=== PATIENT | female | born 1980 ===

== ENCOUNTER 2016-04-30 14:18 | Emergency (ER) | payer OTHER ==
--- NOTE | 2016-04-30 15:42 | ED NURSING NOTES ---
Clinical Report - Nurses [facility] [address] [place] [address] 04/30/2016 14:21 Patient: ASHIA BRAN TRIAGE Triage time 1425. Acuity: LEVEL 3. Chief Complaint: ABDOMINAL PAIN. ИРИНА COMA SCORE: Norden Coma Scale: 15- eyes open spontaneously (4); best verbal response- oriented x 4 (5); best motor response- obeys commands (6). --14:36 Carola Ojeda R.N. 14:28 04/30/16. BP: 108/55. HR: 89. RR: 18 (unlabored). O2 saturation: 99% on room air. Temp: 98.3 F (oral). Pain level now: 09/21. --14:36 Carola Ojeda R.N. Weight: 79.8 kg stated. Height/Length: 65 inches Per Patient. BMI: 29.3. --14:28 Carola Ojeda R.N. Medications Vitamins Oral. --14:32 Carola Ojeda R.N. Radha Oral. --14:32 Carola Ojeda R.N. Allergies Excedrin. --14:32 Carola Ojeda R.N. Medication/allergy information source: the patient. --14:36 Carola Ojeda R.N. History Arrived by private vehicle. Historian: patient. Accompanied by family. Primary physician ([facility]). ( pt c/o RLQ x 2 days. pt is 15 weeks , thinks she pulled a muscle while carrying her 16 month old daughter). Onset. (2 days ago). 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 PAST MEDICAL HX: Last normal menstrual period- Dec 28, 2015. 5. Para 3. Abortions 1. Currently : 15 weeks. SOCIAL HX: Never smoker. No alcohol use or drug use. ABUSE ASSESSMENT: No report of abuse. FALL RISK ASSESSMENT: Fall risk assessment completed. No fall risk identified. NUTRITIONAL RISK ASSESSMENT: The nutritional risk assessment revealed no deficiencies. FUNCTIONAL ASSESSMENT: Functional assessment: no impairments noted. LEARNING NEEDS ASSESSMENT: The learning needs assessment revealed no barriers. SKIN INTEGRITY ASSESSMENT: Skin integrity risk assessment completed. No skin integrity risk identified. --14:36 Carola Ojeda R.N. PROBLEMS: Pancreatitis. Lifestyle / Substance Problems. Gastritis. Pharyngitis. Asthma. Depression. Anxiety Reaction. GERD. Ulcerative Colitis. --14:47 Carola Ojeda R.N. ADDITIONAL SURGERIES: . --14:33 Carola Ojeda R.N. Interventions ID band on patient. To room. --14:36 Carola Ojeda R.N. PHYSICAL ASSESSMENT ( Pt reports minimal pain at this time.). GENERAL / NEURO / PSYCH: Alert. Appears in no acute distress. HEENT: Mucous membranes are pink. RESPIRATORY: Respirations not labored. GI / : Abdomen soft and nontender. No nausea noted. No emesis noted. SKIN: Skin is warm and dry. --15:01 Brennan Lambert R.N. NURSING PROGRESS NOTES Patient gowned. Head of bed elevated. Two patient identifiers checked. Call light placed in reach. Side rails up x 1. Bed placed in lowest position. Brakes of bed on. Patient ready for evaluation. --14:37 Carola Ojeda R.N. ( [facility]: 164). --14:45 Joanie Mora R.N. 15:02 04/30/2016 Site #1 started via IV in the right forearm with an 22g angiocath; one attempt. Blood drawn: rainbow set. Labeled in the presence of the patient and sent to the lab. Saline lock flushed with 10 mL saline. --15:03 Brennan Lambert R.N. Monitoring of patient in place. Patient gowned. Reassurance given. Two patient identifiers checked. Call light placed in reach. Bed placed in lowest position. --15:03 Brennan Lambert R.N. 15:51 04/30/2016 K-DUR (Potassium Chloride Michelle ER) PO Tablets 20 meq given. Allergies verified and confirmed 5 rights. --15:51 Brennan Lambert R.N. DISPOSITION / DISCHARGE Condition at departure: improved and stable. The goals identified in the patient's plan of care were met. --15:55 Brennan Lambert R.N. 15:54 04/30/16. BP: 108/64. HR: 96. RR: 16. O2 saturation: 99% on room air. Temp: 98.1 F. Pain level now: 0/10. --15:55 Brennan Lambert R.N. 16:07 04/30/2016 Site #1 removed upon discharge. Bandage applied. --16:12 Brennan Lambert R.N. Departure time: 16:13 Apr 30 2016. Condition at departure: improved and stable. The goals identified in the patient's plan of care were met. No learning barriers present. Discharge instructions provided and reviewed with the patient. Reviewed medication(s) side effects, precautions, dosing and course information. Prescription(s) given to the patient. Reviewed referral to a primary care physician. Patient verbalized understanding. Written instructions provided in French. The patient was discharged by the nurse practitioner. She was discharged home and accompanied by spouse. She left the Emergency Department ambulatory and via private vehicle. Patient driving. ( Pt stable, VSS, afebrile, ambulatory, S/O is ride home.). --16:13 Brennan Lambert R.N. Locked/Released at 04/30/2016 16:16 by Brennan Lambert R.N.
--- NOTE | 2016-04-30 15:42 | ED NURSING NOTES ---
Clinical Report - Nurses [facility] [address] [place] [address] 04/30/2016 14:21 Patient: ASHIA BRAN TRIAGE Triage time 1425. Acuity: LEVEL 3. Chief Complaint: ABDOMINAL PAIN. ИРИНА COMA SCORE: Dover Coma Scale: 15- eyes open spontaneously (4); best verbal response- oriented x 4 (5); best motor response- obeys commands (6). --14:36 Carola Ojeda R.N. 14:28 04/30/16. BP: 108/55. HR: 89. RR: 18 (unlabored). O2 saturation: 99% on room air. Temp: 98.3 F (oral). Pain level now: 09/21. --14:36 Carola Ojeda R.N. Weight: 79.8 kg stated. Height/Length: 65 inches Per Patient. BMI: 29.3. --14:28 Carola Ojeda R.N. Medications Vitamins Oral. --14:32 Carola Ojeda R.N. Radha Oral. --14:32 Carola Ojeda R.N. Allergies Excedrin. --14:32 Carola Ojeda R.N. Medication/allergy information source: the patient. --14:36 Carola Ojeda R.N. History Arrived by private vehicle. Historian: patient. Accompanied by family. Primary physician ([facility]). ( pt c/o RLQ x 2 days. pt is 15 weeks , thinks she pulled a muscle while carrying her 16 month old daughter). Onset. (2 days ago). 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 PAST MEDICAL HX: Last normal menstrual period- Dec 28, 2015. 5. Para 3. Abortions 1. Currently : 15 weeks. SOCIAL HX: Never smoker. No alcohol use or drug use. ABUSE ASSESSMENT: No report of abuse. FALL RISK ASSESSMENT: Fall risk assessment completed. No fall risk identified. NUTRITIONAL RISK ASSESSMENT: The nutritional risk assessment revealed no deficiencies. FUNCTIONAL ASSESSMENT: Functional assessment: no impairments noted. LEARNING NEEDS ASSESSMENT: The learning needs assessment revealed no barriers. SKIN INTEGRITY ASSESSMENT: Skin integrity risk assessment completed. No skin integrity risk identified. --14:36 Carola Ojeda R.N. PROBLEMS: Pancreatitis. Lifestyle / Substance Problems. Gastritis. Pharyngitis. Asthma. Depression. Anxiety Reaction. GERD. Ulcerative Colitis. --14:47 Carola Ojeda R.N. ADDITIONAL SURGERIES: . --14:33 Carola Ojeda R.N. Interventions ID band on patient. To room. --14:36 Carola Ojeda R.N. PHYSICAL ASSESSMENT ( Pt reports minimal pain at this time.). GENERAL / NEURO / PSYCH: Alert. Appears in no acute distress. HEENT: Mucous membranes are pink. RESPIRATORY: Respirations not labored. GI / : Abdomen soft and nontender. No nausea noted. No emesis noted. SKIN: Skin is warm and dry. --15:01 Brennan Lambert R.N. NURSING PROGRESS NOTES Patient gowned. Head of bed elevated. Two patient identifiers checked. Call light placed in reach. Side rails up x 1. Bed placed in lowest position. Brakes of bed on. Patient ready for evaluation. --14:37 Carola Ojeda R.N. ( [facility]: 164). --14:45 Joanie Mora R.N. 15:02 04/30/2016 Site #1 started via IV in the right forearm with an 22g angiocath; one attempt. Blood drawn: rainbow set. Labeled in the presence of the patient and sent to the lab. Saline lock flushed with 10 mL saline. --15:03 Brennan Lambert R.N. Monitoring of patient in place. Patient gowned. Reassurance given. Two patient identifiers checked. Call light placed in reach. Bed placed in lowest position. --15:03 Brennan Lambert R.N. 15:51 04/30/2016 K-DUR (Potassium Chloride Michelle ER) PO Tablets 20 meq given. Allergies verified and confirmed 5 rights. --15:51 Brennan Lambert R.N. DISPOSITION / DISCHARGE Condition at departure: improved and stable. The goals identified in the patient's plan of care were met. --15:55 Brennan Lambert R.N. 15:54 04/30/16. BP: 108/64. HR: 96. RR: 16. O2 saturation: 99% on room air. Temp: 98.1 F. Pain level now: 0/10. --15:55 Brennan Lambert R.N. 16:07 04/30/2016 Site #1 removed upon discharge. Bandage applied. --16:12 Brennan Lambert R.N. Departure time: 16:13 Apr 30 2016. Condition at departure: improved and stable. The goals identified in the patient's plan of care were met. No learning barriers present. Discharge instructions provided and reviewed with the patient. Reviewed medication(s) side effects, precautions, dosing and course information. Prescription(s) given to the patient. Reviewed referral to a primary care physician. Patient verbalized understanding. Written instructions provided in Swedish. The patient was discharged by the nurse practitioner. She was discharged home and accompanied by spouse. She left the Emergency Department ambulatory and via private vehicle. Patient driving. ( Pt stable, VSS, afebrile, ambulatory, S/O is ride home.). --16:13 Brennan Lambert R.N. Locked/Released at 04/30/2016 16:16 by Brennan Lambert R.N.
--- NOTE | 2016-04-30 15:42 | ED ORDER SUMMARY ---
..... Patient: ASHIA BRAN OrderSheet [facility] VisitID: [id number] [address] [place] [address] 35y, F Registration Date/Time: 04/30/2016 ORDER SHEET Weight: 79.8 kg (stated) Allergies: Excedrin GENERAL ORDERS: US Abdomen Complete (No) Urgent (14:49 04/30/2016 HBivens A.R.N.P.) (Ack 15:02 RKaruga) (16:03 MCook R.N.) CBC w Diff Urgent (14:49 04/30/2016 HBivens A.R.N.P.) (Ack 15:02 RKaruga) (15:02 MCook R.N.) CMP Urgent (14:49 04/30/2016 HBivens A.R.N.P.) (Ack 15:02 RKaruga) (15:02 MCook R.N.) UA-Culture if indicated Urgent (14:50 04/30/2016 HBivens A.R.N.P.) (Ack 15:02 RKaruga) (15:02 MCook R.N.) MEDICATION ORDERS: K-Dur PO 20 meq (Do not crush or chew, NOW) (15:30 04/30/2016 HBivens A.R.N.P.) (15:51 MCook R.N.) IV FLUIDS: IV Saline Lock (14:49 04/30/2016 HBivens A.R.N.P.) (Ack 14:51 SStone R.N.) (15:03 MCook R.N.) ORDER SHEET NOTES: [Electronically signed by Brennan Lambert R.N. (16:16 04/30/2016)] [Electronically signed by Manuela Islas.R.N.P. (16:18 04/30/2016)] [Electronically locked/signed by Brennan Lambert R.N. (16:16 04/30/2016)]
--- NOTE | 2016-04-30 15:42 | ED CLINICAL REPORT ---
Clinical Report - Physicians/Mid Levels [facility] [address] [place] [address] 04/30/2016 14:21 Patient: ASHIA BRAN Time Seen: 14:24; upon arrival, initial patient contact, initial documentation, patient care assumed. Arrived- By private vehicle. Historian- patient. HISTORY OF PRESENT ILLNESS Chief Complaint: ABDOMINAL PAIN. This started yesterday and is still present. It was abrupt in onset and has been constant. At its maximum, severity described as moderate. When seen in the E.D., severity described as moderate. Modifying factors. Not worsened by anything. Not relieved by anything. It is described as "pain", sharp and stabbing. No radiation. It is described as located in the right lower quadrant. No nausea, loss of appetite, vomiting or diarrhea. No additional abdominal pain. No recent travel. Similar symptoms previously: None. Recent medical care: The patient was seen recently in a clinic. 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 REVIEW OF SYSTEMS No constipation, black stools, hematemesis, difficulty with urination or pain with urination. No urinary frequency, bloody stools, fever, chest pain or difficulty breathing. Currently : In 2nd trimester. Has had care in clinic. All systems otherwise negative, except as recorded above. PAST HISTORY See nurses notes. PAST HISTORY Asthma. Depression. Anxiety Reaction. GERD. Ulcerative Colitis. ADDITIONAL SURGERIES: . --14:33 Carola Ojeda, RVerito. SOCIAL HISTORY Never smoker. No alcohol use or drug use. No recent travel. Is a local resident. She lives with spouse. FAMILY HISTORY Negative. ADDITIONAL NOTES The nursing notes have been reviewed with agreement regarding the chief complaint, HPI, ROS, PMH and patient medications and allergies. PHYSICAL EXAM Vital Signs: 04/30/2016 14:28 BP: 108/55. HR: 89. RR: 18. O2 saturation: 99%. Temp: 98.3 F. Pain level now: 7/10. Have been reviewed as normal and appear to be correct. Appearance: Alert. Oriented X3. No acute distress. Eyes: Pupils equal, round and reactive to light. Eyes normal inspection. Neck: Normal inspection. Neck supple. CVS: Normal heart rate and rhythm. Heart sounds normal. Pulses normal. Respiratory: No respiratory distress. Breath sounds normal. Chest nontender. Abdomen: Soft. Mild tenderness in the right lower quadrant. No guarding, rebound tenderness or Mooney's, obturator or psoas sign present. Nontender gravid uterus palpable to midpoint between pubic symphysis and umbilicus (FHT's 160's per nurse). Size consistent with dates. Normal heart tones. Bowel sounds normal. No organomegaly. No mass. Tenderness present. Back: Normal inspection. Skin: Skin warm and dry. Normal skin color. No rash. Normal skin turgor. Extremities: Extremities exhibit normal ROM. No lower extremity edema. Neuro: Oriented X 3. No motor deficit. No sensory deficit. LABS, X-RAYS, AND EKG Abdominal Sonogram: No acute disease. (verbal report given by [employer], [facility] appy, normal iup). Laboratory Tests: UA-Culture if indicated: (MIKEY: 04/30/2016 14:35) ( [facility] 04/30/2016 15:13) Final results Test Result Flag Units (Reference) URINE COLOR YELLOW URINE APPEARANCE CLEAR URINE GLUCOSE NEGATIVE (NEGATIVE) URINE BILIRUBIN NEGATIVE (NEGATIVE) URINE KETONE NEGATIVE (NEGATIVE) URINE SPECIFIC GRAVITY 1.010 (1.010-1.030) URINE PH 6.0 (5.0-8.0) URINE PROTEIN NEGATIVE (NEGATIVE) URINE UROBILINOGEN 0.2 EU/dL (0.2-1.0) URINE NITRITE NEGATIVE (NEGATIVE) URINE BLOOD NEGATIVE (NEGATIVE) URINE LEUK ESTERASE POSITIVE (NEGATIVE) URINE RBC NONE SEEN rbc/hpf (0-1) URINE WBC RARE wbc/hpf (0-1) URINE EPITHELIAL CELLS NONE SEEN EPI/hpf (0-5) URINE BACTERIA NONE SEEN (NONE SEEN) URINE COMMENT CULTURE INDICATED URINE CULTURES ARE SET-UP BASED ON THE FOLLOWING CRITERIA:POSITIVE NITRITEPOSITIVE LEUKOCYTE ESTERASEGREATER THAN 10 WHITE BLOOD CELLSMODERATE (2+) OR GREATER BACTERIA CBC w Diff: (MIKEY: 04/30/2016 15:00) ( [facility] 04/30/2016 15:12) Final results Test Result Flag Units (Reference) WHITE BLOOD COUNT 6.6 K/uL (4.5-11.5) RED BLOOD COUNT 3.92 L M/uL (4.00-5.20) HEMOGLOBIN 11.6 L gm/dL (12.0-16.0) HEMATOCRIT 34.1 L % (36.0-46.0) MEAN CELL VOLUME 87 fL (80-100) MEAN CORPUSCULAR HGB 30 pg (26-34) MEAN CORPUSCULAR HGB CONC 34 g/dL (31-37) RED CELL DISTRIBUTION WIDTH 14.1 % (11.6-14.8) PLATELET COUNT 323 K/uL (150-400) NEUTROPHIL % 67.7 % (50-75) LYMPH % 21.3 L % (25-40) MONO % 8.8 % (3-14) EOSINOPHIL % 1.8 % (0-4) BASOPHIL % 0.4 % (0-2) CMP: (MIKEY: 04/30/2016 15:00) ( MsgRcvd 04/30/2016 15:28) Final results Test Result Flag Units (Reference) GLUCOSE 107 mg/dL (70-110) BUN 6 L mg/dL (7-18) CREATININE 0.5 L mg/dL (0.6-1.3) Estimated GFR >60 mL/min Estimated GFR- >60 mL/min Note: Persistent reduction over 3 months in eGFR<60 mL/min/1.73 m2 defines CKD. Patients with eGFR values>=60 mL/min/1.73 m2 may also have CKD if evidence ofpersistent proteinuria. Additional information may be foundat www.kidney.org. SODIUM 138 mmol/L (136-145) POTASSIUM 3.2 L mmol/L (3.5-5.1) CHLORIDE 105 mmol/L (98-107) CARBON DIOXIDE 22 mmol/L (21-32) CALCIUM 8.5 mg/dL (8.5-10.1) TOTAL PROTEIN 7.1 g/dL (6.4-8.2) ALBUMIN 3.1 L g/dL (3.3-5.0) BILIRUBIN, TOTAL 0.2 mg/dL (0.0-1.0) ALKALINE PHOSPHATASE 41 L U/L (46-116) AST (SGOT) 11 L U/L (15-37) ALT (SGPT) 16 U/L (12-78) . PROGRESS AND PROCEDURES Patient counseled in person regarding the patient's stable condition, test results and diagnosis. 1535. Differential Diagnosis: I considered acute appendicitis, mesenteric lymphadenitis, hernia, urinary tract infection, ureterolithiasis, ovarian cyst, ovarian torsion, , pelvic abscess and viral syndrome as a possible cause of abdominal pain in this patient. This is a partial list of diagnoses considered. Above considerations are based on history, physical exam, laboratory data and other information. Differential diagnosis was discussed with patient. Disposition: Discharged home in good and unchanged condition (15:41). Condition: good and stable. CLINICAL IMPRESSION Acute right lower quadrant abdominal pain. Acute urinary tract infection. No cystitis, pyelonephritis or hematuria. Not associated with indwelling catheter or obstruction. INSTRUCTIONS Warnings: GENERAL WARNINGS: Return or contact your physician immediately if your condition worsens or changes unexpectedly, if not improving as expected, or if other problems arise. SPECIFICALLY, return if you develop pain in the abdomen or pelvis, fever, vomiting, the inability to keep fluids down, blood in vomitus, blood in diarrhea, fainting, lightheadedness or vaginal bleeding. Prescription Medications: Macrobid 100 mg: Take 1 capsule orally every 12 hours for 7 days. No refills. Substitution is permissible. Follow-up: Follow up with your doctor in about three days even if well. Call for an appointment. Summary of care provided to patient. Understanding of the discharge instructions verbalized by patient. (Electronically signed by Manuela Islas A.R.N.P. 04/30/2016 16:18)
--- NOTE | 2016-04-30 15:42 | ED ORDER SUMMARY ---
..... Patient: ASHIA BRAN OrderSheet [facility] VisitID: [id number] [address] [place] [address] 35y, F Registration Date/Time: 04/30/2016 ORDER SHEET Weight: 79.8 kg (stated) Allergies: Excedrin GENERAL ORDERS: US Abdomen Complete (No) Urgent (14:49 04/30/2016 HBivens A.R.N.P.) (Ack 15:02 RKaruga) (16:03 MCook R.N.) CBC w Diff Urgent (14:49 04/30/2016 HBivens A.R.N.P.) (Ack 15:02 RKaruga) (15:02 MCook R.N.) CMP Urgent (14:49 04/30/2016 HBivens A.R.N.P.) (Ack 15:02 RKaruga) (15:02 MCook R.N.) UA-Culture if indicated Urgent (14:50 04/30/2016 HBivens A.R.N.P.) (Ack 15:02 RKaruga) (15:02 MCook R.N.) MEDICATION ORDERS: K-Dur PO 20 meq (Do not crush or chew, NOW) (15:30 04/30/2016 HBivens A.R.N.P.) (15:51 MCook R.N.) IV FLUIDS: IV Saline Lock (14:49 04/30/2016 HBivens A.R.N.P.) (Ack 14:51 SStone R.N.) (15:03 MCook R.N.) ORDER SHEET NOTES: [Electronically signed by Brennan Lambert R.N. (16:16 04/30/2016)] [Electronically signed by Manuela Islas.R.N.P. (16:18 04/30/2016)] [Electronically locked/signed by Brennan Lambert R.N. (16:16 04/30/2016)]
--- NOTE | 2016-04-30 15:55 | DIAGNOSTIC IMAGING REPORT ---
PROCEDURE: US ABDOMEN ULTRASOUND-COMPLETE INDICATION: ABDOMINAL PAIN TECHNIQUE: Kirkpatrick scale and color Doppler sonographic images of the abdomen were obtained without comparison. COMPARISON: None. FINDINGS: Single live intrauterine fetus heart rate 156 The liver is normal in size, contour, and echotexture. No mass or intrahepatic biliary dilatation. The gallbladder is normal without stones or sludge. The wall is normal thickness measuring 1.5 mm No pericholecystic fluid or Mooney sign. The extrahepatic common duct is normal measuring 3.5 mm The pancreas is not well seen. The abdominal aorta is normal in its course and caliber. The retrohepatic inferior vena cava is patent. There is appropriate hepatopetal flow in the portal vein. The right kidney measures 12.6 cm in length. The left kidney measures 11.9 cm in length. Both kidneys demonstrate normal morphology and cortical thickness without hydronephrosis, cyst, solid mass, or shadowing calculus. Color Doppler imaging demonstrates normal blood flow in each kidney. The spleen is normal in size measuring 11.2 cm in length. There is no perihepatic or perisplenic ascites. IMPRESSION: 1. Normal abdominal ultrasound. 2. Single live intrauterine fetus heart rate 156
--- NOTE | 2016-04-30 16:18 | ED MAR SUMMARY ---
..... Medication Administration Record [facility] [address] [place] [address] Patient: ASHIA BRAN Visit ID: [id number] 35y, F Weight: 79.8 kg Height/Length: 65 in BMI: 29.3 ALLERGIES: Excedrin Given 15:51 04/30/2016 Brennan Lambert R.N. Medication Administered: K-DUR [PO] (POTASSIUM CHLORIDE PATRICIA ER), Dose: 20 meq Tablets PO. Medication Ordered: K-Dur PO 20 meq (Do not crush or chew, NOW).
--- NOTE | 2016-04-30 16:18 | ED DISCHARGE INSTRUCTIONS ---
Patient: ASHIA BRAN General Instructions [facility] VisitID: [id number] [place] [address] 35y, F Registration Date/Time: 04/30/2016 Acute right lower quadrant abdominal pain. Acute urinary tract infection. No cystitis, pyelonephritis or hematuria. Not associated with indwelling catheter or obstruction. INSTRUCTIONS Warnings: GENERAL WARNINGS: Return or contact your physician immediately if your condition worsens or changes unexpectedly, if not improving as expected, or if other problems arise. SPECIFICALLY, return if you develop pain in the abdomen or pelvis, fever, vomiting, the inability to keep fluids down, blood in vomitus, blood in diarrhea, fainting, lightheadedness or vaginal bleeding. Prescription Medications: Macrobid 100 mg: Take 1 capsule orally every 12 hours for 7 days. No refills. Substitution is permissible. Follow-up: Follow up with your doctor in about three days even if well. Call for an appointment. Summary of care provided to patient. Understanding of the discharge instructions verbalized by patient. ADDITIONAL INFORMATION Abdominal Pain, Unknown Cause (Female) The exact cause of your abdominal (stomach) pain is not certain. This does not mean that this is something to worry about, or the right tests were not done. Everyone likes to know the exact cause of the problem, but sometimes with abdominal pain, there is no clear-cut cause, and this could be a good thing. The good news is that your symptoms can be treated, and you will feel better. Your condition does not seem serious now; however, sometimes the signs of a serious problem may take more time to appear. For this reason,it is important for you to watch for any new symptoms, problems,or worsening of your condition. Over the next few days, the abdominal pain may come and go, or be continuous. Other common symptoms can include nausea and vomiting. Sometimes it can be difficult to tell if you feel nauseous, you may just feel bad and not associate that feeling with nausea. Constipation, diarrhea, and a fever may go along with the pain. The pain may continue even if treated correctly over the following days. Depending on how things go, sometimes the cause can become clear and may require further or different treatment. Additional evaluations, medications, or tests may be needed. Home care Your health care provider may prescribe medications for pain, symptoms, or an infection. Follow the health care provider's instructions for taking these medications. General care Rest until your next exam. No strenuous activities. Try to find positions that ease discomfort. A small pillow placed on the abdomen may help relieve pain. Something warm on your abdomen (such as a heating pad) may help, but be careful not to burn yourself. Diet Do not force yourself to eat, especially if having cramps, vomiting, or diarrhea. Water is important so you do not get dehydrated. Soup may also be good. Sports drinks may also help, especially if they are not too acidic. Make sure you don't drink sugary drinks as this can make things worse. Take liquids in small amounts. Do not guzzle them. Caffeine sometimes makes the pain and cramping worse. Avoid dairy products if you have vomiting or diarrhea. Don't eat large amounts at a time. Wait a few minutes between bites. Eat a diet low in fiber (called a low-residue diet). Foods allowed include refined breads, white rice, fruit and vegetable juices without pulp, tender meats. These foods will pass more easily through the intestine. Avoid whole-grain foods, whole fruits and vegetables, meats, seeds and nuts, fried or fatty foods, dairy, alcohol and spicy foods until your symptoms go away. Follow-up care Follow up with your health care provider as instructed, or if your pain does not begin to improve in the next 24 hours. When to seek medical care Seek prompt medical care if any of the following occur: Pain gets worse or moves to the right lower abdomen New or worsening vomiting or diarrhea Swelling of the abdomen Unable to pass stool for more than three days Fever of 100.4F (38C) or higher, or as directed by your healthcare provider. Blood in vomit or bowel movements (dark red or black color) Jaundice (yellow color of eyes and skin) Weakness, dizziness Chest, arm, back, neck or jaw pain Unexpected vaginal bleeding or missed period Call 911 Call emergency services if any of the following occur: Trouble breathing Confusion Fainting or loss of consciousness Rapid heart rate Seizure Abdominal Pain,Possible Appendicitis [Repeat Exam, Female] Based on your visit today, the exact cause of your abdominal (stomach) pain is not certain. However, you do have some of the early signs of APPENDICITIS. Early in an appendix infection the symptoms can be similar to a simple "stomach ache" or "stomach flu". Therefore, the diagnosis can be hard to make. Since an appendix infection is a serious condition, it is important to know if this is the cause of your symptoms. WAITING for more time to pass and repeating the exam is the best way to find out whether you have appendicitis. Within the next 12-24 hours the cause of your stomach pain should become clear. It is important for you to watch for any new symptoms or worsening of your condition. (See below). Home Care: Rest until your next exam. No strenuous activities. Eat a diet low in fiber (called a low-residue diet). Foods allowed include refined breads, white rice, fruit and vegetable juices without pulp, tender meats. These foods will pass more easily through the intestine. Avoid whole-grain foods, whole fruits and vegetables, meats, seeds and nuts, fried or fatty foods, dairy, alcohol and spicy foods until your symptoms go away. In some cases, you may be asked not to eat or drink anything until you are re-examined. Return for another exam exactly as directed. Follow Up with your doctor or this facility as directed. Get Prompt Medical Attention if any of the following occur: Pain gets worse or moves to the right lower abdomen New or worsening vomiting or diarrhea Swelling of the abdomen Unable to pass stool for more than three days Fever of 100.4F (38C) or higher, or as directed by your healthcare provider Blood in vomit or bowel movements (dark red or black color) Weakness, dizziness or fainting Unexpected vaginal bleeding Bladder Infection,Female (Adult) A bladder infection ("cystitis" or "UTI") usually causes a constant urge to urinate and a burning when passing urine. Urine may be cloudy, smelly or dark. There may be pain in the lower abdomen. A bladder infection occurs when bacteria from the vaginal area enter the bladder opening (urethra). This can occur from sexual intercourse, wearing tight clothing, dehydration and other factors. Home Care: Drink lots of fluids (at least 6-8 glasses a day, unless you must restrict fluids for other medical reasons). This will force the medicine into your urinary system and flush the bacteria out of your body. Avoid sexual intercourse until your symptoms are gone. Avoid caffeine, alcohol and spicy foods. These can irritate the bladder. A bladder infection is treated with antibiotics. You may also be given Pyridium (generic = phenazopyridine) to reduce the burning sensation. This medicine will cause your urine to become a bright orange color. The orange urine may stain clothing. You may wear a pad or panty-liner to protect clothing. Preventing Future Infections: Always wipe from front to back after a bowel movement. Keep the genital area clean and dry. Drink plenty of fluids each day to avoid dehydration. Both sexual partners should wash before intercourse. Urinate right after intercourse to flush out the bladder. Wear cotton underwear and cotton-lined panty hose; avoid tight-fitting pants. If you are on control pills and are having frequent bladder infections, discuss with your doctor. Follow Up: Return to this facility or see your doctor if ALL symptoms are not gone after three days of treatment. Get Prompt Medical Attention if any of the following occur: Fever of 100.4F (38C) or higher, or as directed by your healthcare provider No improvement by the third day of treatment Increasing back or abdominal pain Repeated vomiting; unable to keep medicine down Weakness, dizziness or fainting Vaginal discharge Pain, redness or swelling in the labia (outer vaginal area) Nitrofurantoin, Nitrofurantoin, Macrocrystalline Oral capsule What is this medicine? NITROFURANTOIN (fabian gil) is an antibiotic. It is used to treat urinary tract infections. How should I use this medicine? Take this medicine by mouth with a glass of water. Follow the directions on the prescription label. Take this medicine with food or milk. Take your doses at regular intervals. Do not take your medicine more often than directed. Do not stop taking except on your doctor's advice. Talk to your grades 6 through 8 teacher regarding the use of this medicine in children. While this drug may be prescribed for selected conditions, precautions do apply. What side effects may I notice from receiving this medicine? Side effects that you should report to your doctor or health child care centre director as soon as possible: allergic reactions like skin rash or hives, swelling of the face, lips, or tongue chest pain cough difficulty breathing dizziness, drowsiness fever or infection joint aches or pains pale or blue-tinted skin redness, blistering, peeling or loosening of the skin, including inside the mouth tingling, burning, pain, or numbness in hands or feet unusual bleeding or bruising unusually weak or tired yellowing of eyes or skin Side effects that usually do not require medical attention (report to your doctor or health child care centre director if they continue or are bothersome): dark urine diarrhea headache loss of appetite nausea or vomiting temporary hair loss What may interact with this medicine? antacids containing magnesium trisilicate probenecid quinolone antibiotics like ciprofloxacin, lomefloxacin, norfloxacin and ofloxacin sulfinpyrazone What if I miss a dose? If you miss a dose, take it as soon as you can. If it is almost time for your next dose, take only that dose. Do not take double or extra doses. Where should I keep my medicine? Keep out of the reach of children. Store at room temperature between 15 and 30 degrees C (59 and 86 degrees F). Protect from light. Throw away any unused medicine after the expiration date. What should I tell my health care provider before I take this medicine? They need to know if you have any of these conditions: anemia diabetes [id number] dehydrogenase deficiency kidney disease liver disease lung disease other chronic illness an unusual or allergic reaction to nitrofurantoin, other antibiotics, other medicines, foods, dyes or preservatives or trying to get breast-feeding What should I watch for while using this medicine? Tell your doctor or health child care centre director if your symptoms do not improve or if you get new symptoms. Drink several glasses of water a day. If you are taking this medicine for a long time, visit your doctor for regular checks on your progress. If you are diabetic, you may get a false positive result for sugar in your urine with certain brands of urine tests. Check with your doctor. You have been given the following additional information: Abdominal Pain, Unknown Cause, (Female) Abdominal Pain, Possible Appendicitis (Female) Bladder Infection, Female (Adult) Nitrofurantoin, Nitrofurantoin, Macrocrystalline Oral capsule (Electronically signed by Manuela Islas A.R.N.P. 04/30/2016 16:18)
--- NOTE | 2016-04-30 16:18 | ED MAR SUMMARY ---
..... Medication Administration Record [facility] [address] [place] [address] Patient: ASHIA BRAN Visit ID: [id number] 35y, F Weight: 79.8 kg Height/Length: 65 in BMI: 29.3 ALLERGIES: Excedrin Given 15:51 04/30/2016 Brennan Lambert R.N. Medication Administered: K-DUR [PO] (POTASSIUM CHLORIDE PATRICIA ER), Dose: 20 meq Tablets PO. Medication Ordered: K-Dur PO 20 meq (Do not crush or chew, NOW).
--- NOTE | 2016-04-30 16:19 | ED MED RECONCILIATION SUMMARY ---
Patient: ASHIA BRAN Medication Reconciliation Report [facility] VisitID: [id number] [address] [place] [address] 35y, F Registration Date/Time: 04/30/2016 Weight: 79.8 kg Height/Length: 65 in. BMI: 29.3 ALLERGIES: Excedrin The patient's Home Medications are listed below: THE FOLLOWING MEDICATIONS NEED TO BE RECONCILED: Radha Oral Vitamins Oral The source(s) of the original Home Medication information: patient The following Medications were given to the patient in the Emergency Department: K-DUR [PO] PO 20 meq, administered: 04/30/2016 3:51:00 PM The following Medications were prescribed to the patient: Macrobid 100 mg: Take 1 capsule orally every 12 hours for 7 days. No refills. Substitution is permissible. -- Manuela Islas A.R.N.P.
--- NOTE | 2016-04-30 16:19 | ED MED RECONCILIATION SUMMARY ---
Patient: ASHIA BRAN Medication Reconciliation Report [facility] VisitID: [id number] [address] [place] [address] 35y, F Registration Date/Time: 04/30/2016 Weight: 79.8 kg Height/Length: 65 in. BMI: 29.3 ALLERGIES: Excedrin The patient's Home Medications are listed below: THE FOLLOWING MEDICATIONS NEED TO BE RECONCILED: Radha Oral Vitamins Oral The source(s) of the original Home Medication information: patient The following Medications were given to the patient in the Emergency Department: K-DUR [PO] PO 20 meq, administered: 04/30/2016 3:51:00 PM The following Medications were prescribed to the patient: Macrobid 100 mg: Take 1 capsule orally every 12 hours for 7 days. No refills. Substitution is permissible. -- Manuela Islas A.R.N.P.
== END 2016-04-30 16:10 | disposition home or self-care (01) ==
LOC: ED SRH 14:18
DX: O23.42 Unspecified infection of urinary tract in pregnancy, second trimester (principal); N39.0 Urinary tract infection, site not specified; R10.31 Right lower quadrant pain; Z3A.15 15 weeks gestation of pregnancy; J45.909 Unspecified asthma, uncomplicated; K21.9 Gastro-esophageal reflux disease without esophagitis; Z88.8 Allergy status to other drugs, medicaments and biological substances
CPT/HCPCS: 90004; 90100; 90469; 95059

== ENCOUNTER 2016-05-29 20:54 | Emergency (ER) | payer OTHER ==
--- NOTE | 2016-05-29 23:13 | ED NURSING NOTES ---
Clinical Report - Nurses [facility] [address] [place] [address] 05/29/2016 20:55 Patient: ASHIA BRAN TRIAGE Triage time 21:31. Acuity: LEVEL 3. Alert. No acute distress. SEPSIS SCREEN: Sepsis Screen. Negative (no infection suspected/documented). --21:41 Morgan Cortez R.N. 21:31 05/29/16. BP: 118/77. HR: 87. RR: 18. O2 saturation: 100% on room air. Temp: 98.4 F (oral). Pain level now: 0/10. --21:41 Morgan Cortez R.N. Acuity: LEVEL 3. ALHAJI COMA SCORE: Alhaji Coma Scale: 15- eyes open spontaneously (4); best verbal response- oriented x 4 (5); best motor response- obeys commands (6). --21:58 Morgan Cortez R.N. Chief Complaint: (leg cramps). 21:41 - late entry -. --23:27 Morgan Cortez R.N. Weight: 81.6 kg stated. Height/Length: 65 inches Per Patient. BMI: 30. --21:31 Morgan Cortez R.N. Medications Vitamins Oral. --21:38 Morgan Cortez R.N. Radha Oral. --21:38 Morgan Cortez R.N. Magnesium Oral. --21:39 Morgan Cortez R.N. Allergies Excedrin. --21:38 Morgan Cortez R.N. History <<STRICKEN ENTRY-- Arrived by private vehicle. Historian: patient. Unaccompanied. Onset. (2 days ago). ( patient states having leg cramps for "a couple days" with hand "twitches" and right hand weakness. States having past medical history of same.). Treatment HOT MOLDER: (magnesium suppliments). PAST MEDICAL HX: Currently : 5 weeks. SOCIAL HX: Never smoker. No alcohol use or drug use. SELF HARM ASSESSMENT: A self harm assessment was performed. The patient answered "no" to the question "Have you recently felt down, depressed, or hopeless?", "Have you noticed less interest or pleasure in doing things?", "Do you have thoughts of harming or killing yourself?", "Are you here because you tried to hurt yourself?", "Have you ever tried to hurt yourself before today?" and "Have you recently had thoughts about harming or killing others?". FALL RISK ASSESSMENT: Fall risk assessment completed. No fall risk identified. NUTRITIONAL RISK ASSESSMENT: The nutritional risk assessment revealed no deficiencies. FUNCTIONAL ASSESSMENT: Functional assessment: no impairments noted. LEARNING NEEDS ASSESSMENT: The learning needs assessment revealed no barriers. ABUSE ASSESSMENT: Abuse assessment: The patient was asked "Do you feel safe in your home?" Abuse denied by patient. SKIN INTEGRITY ASSESSMENT: Skin integrity risk assessment completed. No skin integrity risk identified. --21:41 Morgan Cortez R.N. --END STRIKE>> Correction --21:55 Morgan Cortez R.N. Accompanied by spouse. --21:41 Morgan Cortez R.N. Arrived by private vehicle. Historian: patient. Accompanied by family. ( pt state having leg crams and muscle tiches in right hand, and weakness in right hand for " a couple of days" states having history of similar episodes.). Treatment HOT MOLDER: (magnesium suppliments). PAST MEDICAL HX: Currently : 5 months. SOCIAL HX: Never smoker. No alcohol use or drug use. ABUSE ASSESSMENT: No report of abuse. SELF HARM ASSESSMENT: A self harm assessment was performed. The patient answered "no" to the question "Have you recently felt down, depressed, or hopeless?", "Have you noticed less interest or pleasure in doing things?", "Do you have thoughts of harming or killing yourself?", "Are you here because you tried to hurt yourself?", "Have you ever tried to hurt yourself before today?" and "Have you recently had thoughts about harming or killing others?". FALL RISK ASSESSMENT: Fall risk assessment completed. No fall risk identified. NUTRITIONAL RISK ASSESSMENT: The nutritional risk assessment revealed no deficiencies. FUNCTIONAL ASSESSMENT: Functional assessment: no impairments noted. LEARNING NEEDS ASSESSMENT: The learning needs assessment revealed no barriers. SKIN INTEGRITY ASSESSMENT: Skin integrity risk assessment completed. No skin integrity risk identified. --21:58 Morgan Cortez R.N. PROBLEMS: Abdominal Pain. UTI - Urinary Tract Infection. Pancreatitis. Lifestyle / Substance Problems. Gastritis. Pharyngitis. Asthma. Depression. Anxiety Reaction. GERD. Ulcerative Colitis. --21:38 Morgan Cortez R.N. The following entry was modified by Morgan Cortez R.N., 21:55 Reason - Struck from template <<STRICKEN ENTRY-- . --21:55 Morgan Cortez R.N. --END STRIKE>>. ADDITIONAL SURGERIES: . --21:38 Morgan Cortez R.N. Interventions ID and allergy band on patient. To treatment room. --21:41 Morgan Cortez R.N. ID band on patient. To treatment room. --21:58 Morgan Cortez R.N. PHYSICAL ASSESSMENT GENERAL / NEURO / PSYCH: Alert. Oriented X 4. Appears in no acute distress. HEENT: Mucous membranes are pink. RESPIRATORY: Respirations not labored. Breath sounds within normal limits. CVS: Capillary refill less than 2 seconds. GI / : Abdomen soft and nontender. No vaginal bleeding. No vaginal discharge. SKIN: Skin is warm and dry. --21:42 Morgan Cortez R.N. NURSING PROGRESS NOTES Patient gowned. Head of bed elevated. Reassurance given. Two patient identifiers checked. Call light placed in reach. Side rails up x 1. Bed placed in lowest position. Brakes of bed on. Patient ready for evaluation- chart flagged. Patient waiting for evaluation. --21:43 Morgan Cortez R.N. ( Heart Tones = 147 bpm, Materal pulse rate=80 bpm.). --22:55 Morgan Cortez R.N. 23:22 05/29/2016 K-DUR (Potassium Chloride Michelle ER) PO Tablets 10 meq given. Allergies verified and confirmed 5 rights. --23:25 Morgan Cortez R.N. DISPOSITION / DISCHARGE No learning barriers present. Discharge instructions provided and reviewed. Reviewed warnings. Treatments reviewed. Reviewed referrals for followup. Patient verbalized understanding. Written instructions provided in [place]an. The patient was discharged home and accompanied by family service center director. She left the Emergency Department ambulatory and via private vehicle. Button Machine Operator driving. --23:26 Morgan Cortez R.N. 23:25 05/29/16. BP: 113/64. HR: 95. RR: 18 (regular and unlabored). O2 saturation: 98% on room air. Pain level now: 0/10. --23:26 Morgan Cortez R.N. Locked/Released at 05/29/2016 23:27 by Morgan Cortez R.N.
--- NOTE | 2016-05-29 23:13 | ED ORDER SUMMARY ---
..... Patient: ASHIA BRAN OrderSheet [facility] VisitID: [id number] [place] [address] 35y, F Registration Date/Time: 05/29/2016 ORDER SHEET Weight: 81.6 kg (stated) Allergies: Excedrin GENERAL ORDERS: CBC w Diff Urgent (22:14 05/29/2016 HBivens A.R.N.P.) (Ack 22:14 IJurca ER Tech1) (22:54 DDavis R.N.) CMP Urgent (22:14 05/29/2016 HBivens A.R.N.P.) (Ack 22:14 IJurca ER Tech1) (22:54 DDavis R.N.) Heart Tones (22:14 05/29/2016 HBivens A.R.N.P.) (Ack 22:14 IJurca ER Tech1) (22:54 DDavis R.N.) MEDICATION ORDERS: K-Dur PO 10 meq (Do not crush or chew, NOW) (23:13 05/29/2016 HBivens A.R.N.P.) (Ack 23:15 DDavis R.N.) (23:25 DDavis R.N.) IV FLUIDS: ORDER SHEET NOTES: [Electronically signed by Morgan Cortez R.N. (23:27 05/29/2016)] [Electronically signed by Manuela Islas.R.N.PCierra (11:55 05/30/2016)] [Electronically locked/signed by Morgan Cortez R.N. (23:27 05/29/2016)]
--- NOTE | 2016-05-29 23:13 | ED NURSING NOTES ---
Clinical Report - Nurses [facility] [address] [place] [address] 05/29/2016 20:55 Patient: ASHIA BRAN TRIAGE Triage time 21:31. Acuity: LEVEL 3. Alert. No acute distress. SEPSIS SCREEN: Sepsis Screen. Negative (no infection suspected/documented). --21:41 Morgan Cortez R.N. 21:31 05/29/16. BP: 118/77. HR: 87. RR: 18. O2 saturation: 100% on room air. Temp: 98.4 F (oral). Pain level now: 0/10. --21:41 Morgan Cortez R.N. Acuity: LEVEL 3. ALHAJI COMA SCORE: Alhaji Coma Scale: 15- eyes open spontaneously (4); best verbal response- oriented x 4 (5); best motor response- obeys commands (6). --21:58 Morgan Cortez R.N. Chief Complaint: (leg cramps). 21:41 - late entry -. --23:27 Morgan Cortez R.N. Weight: 81.6 kg stated. Height/Length: 65 inches Per Patient. BMI: 30. --21:31 Morgan Cortez R.N. Medications Vitamins Oral. --21:38 Morgan Cortez R.N. Radha Oral. --21:38 Morgan Cortez R.N. Magnesium Oral. --21:39 Morgan Cortez R.N. Allergies Excedrin. --21:38 Morgan Cortez R.N. History <<STRICKEN ENTRY-- Arrived by private vehicle. Historian: patient. Unaccompanied. Onset. (2 days ago). ( patient states having leg cramps for "a couple days" with hand "twitches" and right hand weakness. States having past medical history of same.). Treatment GAS MANAGER: (magnesium suppliments). PAST MEDICAL HX: Currently : 5 weeks. SOCIAL HX: Never smoker. No alcohol use or drug use. SELF HARM ASSESSMENT: A self harm assessment was performed. The patient answered "no" to the question "Have you recently felt down, depressed, or hopeless?", "Have you noticed less interest or pleasure in doing things?", "Do you have thoughts of harming or killing yourself?", "Are you here because you tried to hurt yourself?", "Have you ever tried to hurt yourself before today?" and "Have you recently had thoughts about harming or killing others?". FALL RISK ASSESSMENT: Fall risk assessment completed. No fall risk identified. NUTRITIONAL RISK ASSESSMENT: The nutritional risk assessment revealed no deficiencies. FUNCTIONAL ASSESSMENT: Functional assessment: no impairments noted. LEARNING NEEDS ASSESSMENT: The learning needs assessment revealed no barriers. ABUSE ASSESSMENT: Abuse assessment: The patient was asked "Do you feel safe in your home?" Abuse denied by patient. SKIN INTEGRITY ASSESSMENT: Skin integrity risk assessment completed. No skin integrity risk identified. --21:41 Morgan Cortez R.N. --END STRIKE>> Correction --21:55 Morgan Cortez R.N. Accompanied by spouse. --21:41 Morgan Cortez R.N. Arrived by private vehicle. Historian: patient. Accompanied by family. ( pt state having leg crams and muscle tiches in right hand, and weakness in right hand for " a couple of days" states having history of similar episodes.). Treatment GAS MANAGER: (magnesium suppliments). PAST MEDICAL HX: Currently : 5 months. SOCIAL HX: Never smoker. No alcohol use or drug use. ABUSE ASSESSMENT: No report of abuse. SELF HARM ASSESSMENT: A self harm assessment was performed. The patient answered "no" to the question "Have you recently felt down, depressed, or hopeless?", "Have you noticed less interest or pleasure in doing things?", "Do you have thoughts of harming or killing yourself?", "Are you here because you tried to hurt yourself?", "Have you ever tried to hurt yourself before today?" and "Have you recently had thoughts about harming or killing others?". FALL RISK ASSESSMENT: Fall risk assessment completed. No fall risk identified. NUTRITIONAL RISK ASSESSMENT: The nutritional risk assessment revealed no deficiencies. FUNCTIONAL ASSESSMENT: Functional assessment: no impairments noted. LEARNING NEEDS ASSESSMENT: The learning needs assessment revealed no barriers. SKIN INTEGRITY ASSESSMENT: Skin integrity risk assessment completed. No skin integrity risk identified. --21:58 Morgan Cortez R.N. PROBLEMS: Abdominal Pain. UTI - Urinary Tract Infection. Pancreatitis. Lifestyle / Substance Problems. Gastritis. Pharyngitis. Asthma. Depression. Anxiety Reaction. GERD. Ulcerative Colitis. --21:38 Morgan Cortez R.N. The following entry was modified by Morgan Cortez R.N., 21:55 Reason - Struck from template <<STRICKEN ENTRY-- . --21:55 Morgan Cortez R.N. --END STRIKE>>. ADDITIONAL SURGERIES: . --21:38 Morgan Cortez R.N. Interventions ID and allergy band on patient. To treatment room. --21:41 Morgan Cortez R.N. ID band on patient. To treatment room. --21:58 Morgan Cortez R.N. PHYSICAL ASSESSMENT GENERAL / NEURO / PSYCH: Alert. Oriented X 4. Appears in no acute distress. HEENT: Mucous membranes are pink. RESPIRATORY: Respirations not labored. Breath sounds within normal limits. CVS: Capillary refill less than 2 seconds. GI / : Abdomen soft and nontender. No vaginal bleeding. No vaginal discharge. SKIN: Skin is warm and dry. --21:42 Morgan Cortez R.N. NURSING PROGRESS NOTES Patient gowned. Head of bed elevated. Reassurance given. Two patient identifiers checked. Call light placed in reach. Side rails up x 1. Bed placed in lowest position. Brakes of bed on. Patient ready for evaluation- chart flagged. Patient waiting for evaluation. --21:43 Morgan Cortez R.N. ( Heart Tones = 147 bpm, Materal pulse rate=80 bpm.). --22:55 Morgan Cortez R.N. 23:22 05/29/2016 K-DUR (Potassium Chloride Michelle ER) PO Tablets 10 meq given. Allergies verified and confirmed 5 rights. --23:25 Morgan Cortez R.N. DISPOSITION / DISCHARGE No learning barriers present. Discharge instructions provided and reviewed. Reviewed warnings. Treatments reviewed. Reviewed referrals for followup. Patient verbalized understanding. Written instructions provided in [place]. The patient was discharged home and accompanied by lockstitch cup setter. She left the Emergency Department ambulatory and via private vehicle. Director Operating driving. --23:26 Morgan Cortez R.N. 23:25 05/29/16. BP: 113/64. HR: 95. RR: 18 (regular and unlabored). O2 saturation: 98% on room air. Pain level now: 0/10. --23:26 Morgan Cortez R.N. Locked/Released at 05/29/2016 23:27 by Morgan Cortez R.N.
--- NOTE | 2016-05-29 23:13 | ED CLINICAL REPORT ---
Clinical Report - Physicians/Mid Levels [facility] [address] [place] [address] 05/29/2016 20:55 Patient: ASHIA BRAN Time Seen: 21:46; upon arrival, initial patient contact, initial documentation, patient care assumed. Arrived- By private vehicle. Historian- patient. HISTORY OF PRESENT ILLNESS Chief Complaint: LOWER EXTREMITY PAIN. Not worsened by anything and relieved by anything. The quality is noted to be (cramps). No radiation. This started about 2 days ago and is still present. Symptoms located in the area of the right leg and left leg. The patient has not had redness. No swelling, bladder dysfunction, bowel dysfunction, sensory loss or motor loss. No difficulty walking. ( some cramping in her R hand too). Patient denies an injury. Similar symptoms previously: Several times, as bad. ( happens with every pregancy, last time it happened her K was low, and she was given 2 huge pills). Recent medical care: The patient was seen recently in the office. ( pt saw her ob earlier today for 20 wk eval, everything good, and found out she was having a girl). REVIEW OF SYSTEMS No chest pain, difficulty breathing, fever, neck pain or back pain. No abdominal pain, vomiting or diarrhea. All systems otherwise negative, except as recorded above. PAST HISTORY See nurses notes. ( PROBLEMS: Abdominal Pain. UTI - Urinary Tract Infection. . Pancreatitis. Lifestyle / Substance Problems. Gastritis. Pharyngitis. Asthma. Depression. Anxiety Reaction. GERD. Ulcerative Colitis. --21:38 Morgan Cortez R.N. ADDITIONAL SURGERIES: . --21:38 Morgan Cortez R.N.). SOCIAL HISTORY Never smoker. No alcohol use or drug use. No recent travel. Is a local resident. FAMILY HISTORY Negative. ADDITIONAL NOTES The nursing notes have been reviewed with agreement regarding the chief complaint, HPI, ROS, PMH and patient medications and allergies. PHYSICAL EXAM Vital Signs: 05/29/2016 21:31 BP: 118/77. HR: 87. RR: 18. O2 saturation: 100%. Temp: 98.4 F. Pain level now: 0/10. Have been reviewed as normal and appear to be correct. Appearance: Alert. Oriented X3. No acute distress. Eyes: Pupils equal, round and reactive to light. Eyes normal inspection. Neck: Normal inspection. Neck supple. CVS: Normal heart rate and rhythm. Heart sounds normal. Respiratory: No respiratory distress. Breath sounds normal. Abdomen: Soft and nontender. Nontender gravid uterus palpable to umbilicus. Size consistent with dates. No organomegaly. Back: Normal inspection. No tenderness. ROM normal. Skin: Skin intact. Skin warm and dry. Normal skin color. Normal skin turgor. Extremities: Lower extremities exhibit normal ROM. No lower extremity edema. Extremities otherwise negative. Gait: Normal gait. Neuro: Oriented X 3. No motor deficit. No sensory deficit. LABS, X-RAYS, AND EKG Laboratory Tests: CBC w Diff: (MIKEY: 05/29/2016 22:45) ( [facility] 05/29/2016 22:57) Final results Test Result Flag Units (Reference) WHITE BLOOD COUNT 7.9 K/uL (4.5-11.5) RED BLOOD COUNT 3.99 L M/uL (4.00-5.20) HEMOGLOBIN 11.6 L gm/dL (12.0-16.0) HEMATOCRIT 35.5 L % (36.0-46.0) MEAN CELL VOLUME 89 fL (80-100) MEAN CORPUSCULAR HGB 29 pg (26-34) MEAN CORPUSCULAR HGB CONC 33 g/dL (31-37) RED CELL DISTRIBUTION WIDTH 13.9 % (11.6-14.8) PLATELET COUNT 309 K/uL (150-400) LYMPH % 28.8 % (25-40) MONO % 5.4 % (3-14) GRANULOCYTE % 65.8 (53-90) CMP: (MIKEY: 05/29/2016 22:45) ( [facility] 05/29/2016 23:09) Final results Test Result Flag Units (Reference) GLUCOSE 90 mg/dL (70-110) BUN 6 L mg/dL (7-18) CREATININE 0.5 L mg/dL (0.6-1.3) Estimated GFR >60 mL/min Estimated GFR- >60 mL/min Note: Persistent reduction over 3 months in eGFR<60 mL/min/1.73 m2 defines CKD. Patients with eGFR values>=60 mL/min/1.73 m2 may also have CKD if evidence ofpersistent proteinuria. Additional information may be foundat www.kidney.org. SODIUM 142 mmol/L (136-145) POTASSIUM 3.5 mmol/L (3.5-5.1) CHLORIDE 107 mmol/L (98-107) CARBON DIOXIDE 23 mmol/L (21-32) CALCIUM 9.0 mg/dL (8.5-10.1) TOTAL PROTEIN 6.9 g/dL (6.4-8.2) ALBUMIN 2.9 L g/dL (3.3-5.0) BILIRUBIN, TOTAL 0.2 mg/dL (0.0-1.0) ALKALINE PHOSPHATASE 49 U/L (46-116) AST (SGOT) 11 L U/L (15-37) ALT (SGPT) 14 U/L (12-78) . PROGRESS AND PROCEDURES Course of Care: Heart Tones = 147 bpm, Materal pulse rate=80 bpm.). --22:55 Morgan Cortez R.N. Patient counseled in person regarding the patient's stable condition, test results and diagnosis. 23:11. Differential Diagnosis: I considered stress fracture, gout, tendonitis, bursitis and Bradley's cyst as a possible cause of lower extremity pain in this patient. This is a partial list of diagnoses considered. (electrolyte imbalance, dehydration, anemia). Above considerations are based on history, physical exam and laboratory data. Differential diagnosis was discussed with patient. Disposition: Discharged home in good and improved condition (23:13). Condition: good and stable. CLINICAL IMPRESSION (Muscle Cramps). INSTRUCTIONS Warnings: GENERAL WARNINGS: Return or contact your physician immediately if your condition worsens or changes unexpectedly, if not improving as expected, or if other problems arise. Specifically return if problem worsens. Follow-up: Follow up with your doctor in about three days as needed. Call for an appointment. Summary of care provided to patient. Understanding of the discharge instructions verbalized by patient. (Electronically signed by Manuela Islas A.R.N.P. 05/30/2016 11:55)
--- NOTE | 2016-05-29 23:13 | ED ORDER SUMMARY ---
..... Patient: ASHIA BRAN OrderSheet [facility] VisitID: [id number] [place] [address] 35y, F Registration Date/Time: 05/29/2016 ORDER SHEET Weight: 81.6 kg (stated) Allergies: Excedrin GENERAL ORDERS: CBC w Diff Urgent (22:14 05/29/2016 HBivens A.R.N.P.) (Ack 22:14 IJurca ER Tech1) (22:54 DDavis R.N.) CMP Urgent (22:14 05/29/2016 HBivens A.R.N.P.) (Ack 22:14 IJurca ER Tech1) (22:54 DDavis R.N.) Heart Tones (22:14 05/29/2016 HBivens A.R.N.P.) (Ack 22:14 IJurca ER Tech1) (22:54 DDavis R.N.) MEDICATION ORDERS: K-Dur PO 10 meq (Do not crush or chew, NOW) (23:13 05/29/2016 HBivens A.R.N.P.) (Ack 23:15 DDavis R.N.) (23:25 DDavis R.N.) IV FLUIDS: ORDER SHEET NOTES: [Electronically signed by Morgan Cortez R.N. (23:27 05/29/2016)] [Electronically signed by Manuela Islas.R.N.PCierra (11:55 05/30/2016)] [Electronically locked/signed by Morgan Cortez R.N. (23:27 05/29/2016)]
--- NOTE | 2016-05-30 11:56 | ED MAR SUMMARY ---
..... Medication Administration Record [facility] [address] [place] [address] Patient: ASHIA BRAN Visit ID: [id number] 35y, F Weight: 81.6 kg Height/Length: 65 in BMI: 30 ALLERGIES: Excedrin Given 23:22 05/29/2016 Morgan Cortez R.N. Medication Administered: K-DUR [PO] (POTASSIUM CHLORIDE PATRICIA ER), Dose: 10 meq Tablets PO. Medication Ordered: K-Dur PO 10 meq (Do not crush or chew, NOW).
--- NOTE | 2016-05-30 11:56 | ED MAR SUMMARY ---
..... Medication Administration Record [facility] [address] [place] [address] Patient: ASHIA BRAN Visit ID: [id number] 35y, F Weight: 81.6 kg Height/Length: 65 in BMI: 30 ALLERGIES: Excedrin Given 23:22 05/29/2016 Morgan Cortez R.N. Medication Administered: K-DUR [PO] (POTASSIUM CHLORIDE PATRICIA ER), Dose: 10 meq Tablets PO. Medication Ordered: K-Dur PO 10 meq (Do not crush or chew, NOW).
--- NOTE | 2016-05-30 11:56 | ED DISCHARGE INSTRUCTIONS ---
Patient: ASHIA BRAN General Instructions [facility] VisitID: [id number] [place] [address] 35y, F Registration Date/Time: 05/29/2016 (Muscle Cramps). INSTRUCTIONS Warnings: GENERAL WARNINGS: Return or contact your physician immediately if your condition worsens or changes unexpectedly, if not improving as expected, or if other problems arise. Specifically return if problem worsens. Follow-up: Follow up with your doctor in about three days as needed. Call for an appointment. Summary of care provided to patient. Understanding of the discharge instructions verbalized by patient. (Electronically signed by Manuela Islas A.R.N.P. 05/30/2016 11:55)
--- NOTE | 2016-05-30 11:56 | ED MED RECONCILIATION SUMMARY ---
Patient: ASHIA BRAN Medication Reconciliation Report [facility] VisitID: [id number] [address] [place] [address] 35y, F Registration Date/Time: 05/29/2016 Weight: 81.6 kg Height/Length: 65 in. BMI: 30.0 ALLERGIES: Excedrin The patient's Home Medications are listed below: THE FOLLOWING MEDICATIONS NEED TO BE RECONCILED: Radha Oral Magnesium Oral Vitamins Oral The source(s) of the original Home Medication information: Not obtained. The following Medications were given to the patient in the Emergency Department: K-DUR [PO] PO 10 meq, administered: 05/29/2016 11:22:00 PM The following Medications were prescribed to the patient: None.
--- NOTE | 2016-05-30 11:56 | ED DISCHARGE INSTRUCTIONS ---
Patient: ASHIA BRAN General Instructions [facility] VisitID: [id number] [place] [address] 35y, F Registration Date/Time: 05/29/2016 (Muscle Cramps). INSTRUCTIONS Warnings: GENERAL WARNINGS: Return or contact your physician immediately if your condition worsens or changes unexpectedly, if not improving as expected, or if other problems arise. Specifically return if problem worsens. Follow-up: Follow up with your doctor in about three days as needed. Call for an appointment. Summary of care provided to patient. Understanding of the discharge instructions verbalized by patient. (Electronically signed by Manuela Islas A.R.N.P. 05/30/2016 11:55)
--- NOTE | 2016-05-30 11:56 | ED MED RECONCILIATION SUMMARY ---
Patient: ASHIA BRAN Medication Reconciliation Report [facility] VisitID: [id number] [address] [place] [address] 35y, F Registration Date/Time: 05/29/2016 Weight: 81.6 kg Height/Length: 65 in. BMI: 30.0 ALLERGIES: Excedrin The patient's Home Medications are listed below: THE FOLLOWING MEDICATIONS NEED TO BE RECONCILED: Radha Oral Magnesium Oral Vitamins Oral The source(s) of the original Home Medication information: Not obtained. The following Medications were given to the patient in the Emergency Department: K-DUR [PO] PO 10 meq, administered: 05/29/2016 11:22:00 PM The following Medications were prescribed to the patient: None.
== END 2016-05-29 23:27 | disposition home or self-care (01) ==
LOC: ED SRH 20:54
DX: O99.89 Other specified diseases and conditions complicating pregnancy, childbirth and the puerperium (principal); R25.2 Cramp and spasm; Z3A.20 20 weeks gestation of pregnancy
CPT/HCPCS: 90074; 90100; 95059

== ENCOUNTER 2016-06-19 15:00 | Outpatient (CLI) | payer OTHER | END 2016-06-19 18:00 | disposition home or self-care (01) | LOC: OB SRH 15:00 → OBC SRH 15:00 | PROC: 4A0HXCZ Measurement of Products of Conception, Cardiac Rate, External Approach (ICD-10-PCS; principal; 2016-06-19) | DX: O99.89 Other specified diseases and conditions complicating pregnancy, childbirth and the puerperium (principal); R10.32 Left lower quadrant pain; O09.522 Supervision of elderly multigravida, second trimester; Z3A.22 22 weeks gestation of pregnancy | CPT/HCPCS: 40003; 40021; 90074; 95059 ==

== ENCOUNTER 2016-07-02 09:31 | Outpatient (CLI) | payer OTHER | END 2016-07-02 23:00 | disposition home or self-care (01) | LOC: LAB SRH 09:31 | DX: O09.522 Supervision of elderly multigravida, second trimester (principal) | CPT/HCPCS: 90004; 90039; 90074; 90078; 90261; 90364; 90599; 90600; 90605; 90606; 90710; 90851; 92863; 93140; 98480; 99777 ==

== ENCOUNTER 2016-09-04 14:28 | Emergency (ER) | payer OTHER ==
--- NOTE | 2016-09-04 16:39 | ED NURSING NOTES ---
Clinical Report - Nurses [facility] [address] [place] [address] 09/04/2016 14:30 Patient: ASHIA BRAN TRIAGE Triage time 14:40 Sep 04 2016. Acuity: LEVEL 4. Chief Complaint: PAINFUL URINATION and FREQUENCY. 14:40 09/04/16. Alert. No acute distress. ( [id number] Pt aware of need for urine sample.). SEPSIS SCREEN: Sepsis Screen. Negative (no infection suspected/documented). ИРИНА COMA SCORE: [place] Coma Scale: 15- eyes open spontaneously (4); best verbal response- oriented x 4 (5); best motor response- obeys commands (6). --14:53 Meli Madrigal 14:50 09/04/16. BP: 111/61. HR: 122. RR: 17. O2 saturation: 100% on room air. Temp: 98.1 F. Pain level now: 09/21. --14:53 Meli Madrigal. Weight: 90.7 kg stated. Height/Length: 65 inches Per Patient. BMI: 33.3. --14:53 Meli Madrigal. Medications Magnesium Oral 400 mg, daily. vitals . --14:51 Meli Madrigal. Medication/allergy information source: the patient. --14:53 Meli Madrigal. Allergies Excedrine . --14:51 Meli Madrigal. History Arrived by private vehicle. Historian: patient. Accompanied by family. Primary physician (Dr Barrett is OB). Onset. (4-5 days ago, got worse 2-3 days ago.). ( Pt reports an increase in frequency of urination as well as burning on urination. Was seen by OB two days ago.). No flank pain. Treatment BATCH ROOM TECHNICIAN: (heating pad, warm baths.). PAST MEDICAL HX: Last normal menstrual period- December 18. 5. Para 3. Abortions 1. SOCIAL HX: Never smoker. No alcohol use or drug use. FALL RISK ASSESSMENT: Fall risk assessment completed. No fall risk identified. NUTRITIONAL RISK ASSESSMENT: The nutritional risk assessment revealed no deficiencies. FUNCTIONAL ASSESSMENT: Functional assessment: no impairments noted. LEARNING NEEDS ASSESSMENT: The learning needs assessment revealed no barriers. SKIN INTEGRITY ASSESSMENT: Skin integrity risk assessment completed. No skin integrity risk identified. --14:53 Meli Madrigal. PROBLEMS: . Abdominal Pain. Pancreatitis. Lifestyle / Substance Problems. Gastritis. Pharyngitis. Asthma. Depression. Anxiety Reaction. GERD. Ulcerative Colitis. --14:52 Meli Madrigal. ADDITIONAL SURGERIES: . --14:52 Meli Madrigal. Assessment The patient states feels the same. --14:53 Meli Madrigal. Interventions ID band on patient. --14:53 Meli Madrigal. PHYSICAL ASSESSMENT 14:54 09/04/16. Ambulatory to room. Patient gowned. GENERAL / NEURO / PSYCH: Alert. Oriented X 4. Appears in no acute distress. HEENT: Mucous membranes are pink. RESPIRATORY: Respirations not labored. CVS: Capillary refill less than 2 seconds. GI / : heart tones present. SKIN: Skin is warm and dry. --14:54 Meli Madrigal. NURSING PROGRESS NOTES 14:54 09/04/16. The plan of care for this patient has been created. Head of bed elevated. Reassurance given. Two patient identifiers checked. Call light placed in reach. Side rails up x 1. Bed placed in lowest position. Brakes of bed on. Patient ready for evaluation- chart flagged and ED physician and PA notified. --14:54 Meli Madrigal 15:02 09/04/2016 Zofran ODT (Ondansetron) PO Oral Disintegrating Tablets 4 mg given. Allergies verified and confirmed 5 rights. --15:02 Meli Madrigal. DISPOSITION / DISCHARGE 16:41 09/04/16. Condition at departure: unchanged. The goals identified in the patient's plan of care were met. FALL RISK ASSESSMENT: Fall risk assessment completed. No fall risk identified. --16:42 Meli Madrigal 16:41 09/04/16. BP: 106/66. HR: 110. RR: 17. O2 saturation: 98%. Temp: 98.2 F. Pain level now 6/10. --16:42 Meli Madrigal 16:54 09/04/16. Departure time: 16:54 Sep 04 2016. No learning barriers present. Discharge instructions provided and reviewed with the patient. Reviewed warnings (Patient verbalized understanding of sedation warning.). Reviewed medication(s) side effects, precautions, dosing and course information. Prescription(s) given to the patient (Tramadol, zofran). Treatments reviewed. Reviewed referral to an real estate inspector and a primary care physician for followup. Patient verbalized understanding. Written instructions provided in [place]. The patient was discharged by the physician. She was discharged home and accompanied by spouse. She left the Emergency Department ambulatory and via private vehicle. Spouse driving. --16:54 Meli Madrigal. Locked/Released at 09/04/2016 16:56 by Meli Madrigal,
--- NOTE | 2016-09-04 16:39 | ED NURSING NOTES ---
Clinical Report - Nurses [facility] [address] [place] [address] 09/04/2016 14:30 Patient: ASHIA BRAN TRIAGE Triage time 14:40 Sep 04 2016. Acuity: LEVEL 4. Chief Complaint: PAINFUL URINATION and FREQUENCY. 14:40 09/04/16. Alert. No acute distress. ( [id number] Pt aware of need for urine sample.). SEPSIS SCREEN: Sepsis Screen. Negative (no infection suspected/documented). ИРИНА COMA SCORE: Angie Coma Scale: 15- eyes open spontaneously (4); best verbal response- oriented x 4 (5); best motor response- obeys commands (6). --14:53 Meli Madrigal 14:50 09/04/16. BP: 111/61. HR: 122. RR: 17. O2 saturation: 100% on room air. Temp: 98.1 F. Pain level now: 09/21. --14:53 Meli Madrigal. Weight: 90.7 kg stated. Height/Length: 65 inches Per Patient. BMI: 33.3. --14:53 Meli Mdarigal. Medications Magnesium Oral 400 mg, daily. vitals . --14:51 Meli Madrigal. Medication/allergy information source: the patient. --14:53 Meli Madrigal. Allergies Excedrine . --14:51 Meli Madrigal. History Arrived by private vehicle. Historian: patient. Accompanied by family. Primary physician (Dr Barrett is OB). Onset. (4-5 days ago, got worse 2-3 days ago.). ( Pt reports an increase in frequency of urination as well as burning on urination. Was seen by OB two days ago.). No flank pain. 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 PAST MEDICAL HX: Last normal menstrual period- December 18. 5. Para 3. Abortions 1. SOCIAL HX: Never smoker. No alcohol use or drug use. FALL RISK ASSESSMENT: Fall risk assessment completed. No fall risk identified. NUTRITIONAL RISK ASSESSMENT: The nutritional risk assessment revealed no deficiencies. FUNCTIONAL ASSESSMENT: Functional assessment: no impairments noted. LEARNING NEEDS ASSESSMENT: The learning needs assessment revealed no barriers. SKIN INTEGRITY ASSESSMENT: Skin integrity risk assessment completed. No skin integrity risk identified. --14:53 Meli Madrigal. PROBLEMS: . Abdominal Pain. Pancreatitis. Lifestyle / Substance Problems. Gastritis. Pharyngitis. Asthma. Depression. Anxiety Reaction. GERD. Ulcerative Colitis. --14:52 Meli Madrigal. ADDITIONAL SURGERIES: . --14:52 Meli Madrigal. Assessment The patient states feels the same. --14:53 Meli Madrigal. Interventions ID band on patient. --14:53 Meli Madrigal. PHYSICAL ASSESSMENT 14:54 09/04/16. Ambulatory to room. Patient gowned. GENERAL / NEURO / PSYCH: Alert. Oriented X 4. Appears in no acute distress. HEENT: Mucous membranes are pink. RESPIRATORY: Respirations not labored. CVS: Capillary refill less than 2 seconds. GI / : heart tones present. SKIN: Skin is warm and dry. --14:54 Meli Madrigal. NURSING PROGRESS NOTES 14:54 09/04/16. The plan of care for this patient has been created. Head of bed elevated. Reassurance given. Two patient identifiers checked. Call light placed in reach. Side rails up x 1. Bed placed in lowest position. Brakes of bed on. Patient ready for evaluation- chart flagged and ED physician and PA notified. --14:54 Meli Madrigal 15:02 09/04/2016 Zofran ODT (Ondansetron) PO Oral Disintegrating Tablets 4 mg given. Allergies verified and confirmed 5 rights. --15:02 Meli Madrigal. DISPOSITION / DISCHARGE 16:41 09/04/16. Condition at departure: unchanged. The goals identified in the patient's plan of care were met. FALL RISK ASSESSMENT: Fall risk assessment completed. No fall risk identified. --16:42 Meli Madrigal 16:41 09/04/16. BP: 106/66. HR: 110. RR: 17. O2 saturation: 98%. Temp: 98.2 F. Pain level now 6/10. --16:42 Meli Madrigal 16:54 09/04/16. Departure time: 16:54 Sep 04 2016. No learning barriers present. Discharge instructions provided and reviewed with the patient. Reviewed warnings (Patient verbalized understanding of sedation warning.). Reviewed medication(s) side effects, precautions, dosing and course information. Prescription(s) given to the patient (Tramadol, zofran). Treatments reviewed. Reviewed referral to an washery boss and a primary care physician for followup. Patient verbalized understanding. Written instructions provided in Sami. The patient was discharged by the physician. She was discharged home and accompanied by spouse. She left the Emergency Department ambulatory and via private vehicle. Spouse driving. --16:54 Meli Madrigal. Locked/Released at 09/04/2016 16:56 by Meli Madrigal,
--- NOTE | 2016-09-04 16:39 | ED CLINICAL REPORT ---
Clinical Report - Physicians/Mid Levels [facility] [address] [place] [address] 09/04/2016 14:30 Patient: ASHIA BRAN Time Seen: 14:37; initial patient contact. Arrived- By private vehicle. Historian- patient. HISTORY OF PRESENT ILLNESS Chief Complaint: DYSURIA. This started about 3 days ago and still present. The symptoms are described as mild. Modifying factors- worsened by urination. Not relieved by anything. The patient has had mild abdominal pain. The pain is described as located in the suprapubic region and associated with nausea. No vomiting, diarrhea or radiation of abdominal pain to the back. No low back pain, flank pain, abnormal bleeding, vaginal discharge or urgency of urination. No hematuria. The patient has had pain with urination. The patient has had urinary frequency. Similar symptoms previously: None. Recent medical care: The patient was seen recently in a clinic. REVIEW OF SYSTEMS The patient has had nausea. No vomiting, diarrhea, fever or chills. All systems otherwise negative, except as recorded above. PAST HISTORY ( . Abdominal Pain. Pancreatitis. Lifestyle / Substance Problems. Gastritis. Pharyngitis. Asthma. Depression. Anxiety Reaction. GERD. Ulcerative Colitis. ADDITIONAL SURGERIES: .). SOCIAL HISTORY Never smoker. No alcohol use or drug use. ADDITIONAL NOTES The nursing notes have been reviewed. PHYSICAL EXAM Vital Signs: 09/04/2016 14:50 BP: 111/61. HR: 122. RR: 17. O2 saturation: 100%. Temp: 98.1 F. Pain level now: 7/10. Have been reviewed. Blood pressure normal. Tachycardic. Respiratory rate normal. Temperature normal. Oxygen saturation normal. Appearance: Alert. Oriented X3. No acute distress. ENT: Pharynx normal. CVS: Heart sounds normal. Rate normal. Rhythm normal. Respiratory: No respiratory distress. Breath sounds normal. Abdomen: Soft. Nontender gravid uterus palpable to midpoint between umbilicus and xiphoid. Size consistent with dates. Normal heart tones. Bowel sounds normal. No mass. Back: Normal external inspection. No CVA tenderness. Skin: Skin warm and dry. Normal skin color. Extremities: No lower extremity edema. Neuro: Oriented X 3. LABS, X-RAYS, AND EKG Laboratory Tests: UA-Culture if indicated: (MIKEY: 09/04/2016 16:08) ( MsgRcvd 09/04/2016 16:27) Final results Test Result Flag Units (Reference) URINE COLOR YELLOW URINE APPEARANCE CLEAR URINE GLUCOSE NEGATIVE (NEGATIVE) URINE BILIRUBIN NEGATIVE (NEGATIVE) URINE KETONE 2+ (NEGATIVE) URINE SPECIFIC GRAVITY 1.025 (1.010-1.030) URINE PH 6.0 (5.0-8.0) URINE PROTEIN TRACE (NEGATIVE) URINE UROBILINOGEN 0.2 EU/dL (0.2-1.0) URINE NITRITE NEGATIVE (NEGATIVE) URINE BLOOD NEGATIVE (NEGATIVE) URINE LEUK ESTERASE NEGATIVE (NEGATIVE) URINE RBC NONE SEEN rbc/hpf (0-1) URINE WBC 0-1 wbc/hpf (0-1) URINE EPITHELIAL CELLS 3-5 EPI/hpf (0-5) URINE BACTERIA FEW (1+) (NONE SEEN) URINE COMMENT CULT NOT INDICATED URINE CULTURES ARE SET-UP BASED ON THE FOLLOWING CRITERIA:POSITIVE NITRITEPOSITIVE LEUKOCYTE ESTERASEGREATER THAN 10 WHITE BLOOD CELLSMODERATE (2+) OR GREATER BACTERIA . PROGRESS AND PROCEDURES Disposition: Discharged home in good condition. Condition: good. CLINICAL IMPRESSION Acute pelvic pain. Ultrasound was not performed to determine location because the patient had a previously documented intrauterine (Round ligament pain). Mild nausea. No vomiting. INSTRUCTIONS Your Current Medications: CONTINUE TAKING THE FOLLOWING MEDICATIONS: Magnesium Oral : 400 mg daily. vitals *. Prescription Medications: Zofran (orally disintegrating tablets) 4 mg: take 1 orally every 6 hours as needed for nausea and vomiting. Dispense ten (10). No refill. Substitution is permissible. Tramadol 50 mg: take 1 orally every 6 hours as needed for pain. Do not take more than 8 tablets in a 24 hour period. Dispense fifteen (15). Follow-up: Follow up with your doctor in about three days. Call for an appointment. Screening today revealed the patient's blood pressure to be in the normal range. (Electronically signed by Rodrigo Herrera Dr. 09/04/2016 16:48)
--- NOTE | 2016-09-04 16:39 | ED ORDER SUMMARY ---
..... Patient: ASHIA BRAN OrderSheet [facility] VisitID: [id number] [address] [place] [address] 36y, F Registration Date/Time: 09/04/2016 ORDER SHEET Weight: 90.7 kg (stated) Allergies: Excedrine GENERAL ORDERS: UA-Culture if indicated Urgent (14:46 09/04/2016 Geovanni Nobles) ([facility] 14:47 Sammi) (15:45 [facility]) MEDICATION ORDERS: Zofran ODT PO 4 mg (NOW) (14:55 09/04/2016 Geovanni Nobles) [facility] [place]UIDS: ORDER SHEET NOTES: [Electronically signed by Rodrigo Herrera Dr. (16:48 09/04/2016)] [Electronically signed by Meli Madrigal (16:56 09/04/2016)] [Electronically locked/signed by Meli Madrigal (16:56 09/04/2016)]
--- NOTE | 2016-09-04 16:39 | ED ORDER SUMMARY ---
..... Patient: ASHIA BRAN OrderSheet [facility] VisitID: [id number] [address] [place] [address] 36y, F Registration Date/Time: 09/04/2016 ORDER SHEET Weight: 90.7 kg (stated) Allergies: Excedrine GENERAL ORDERS: UA-Culture if indicated Urgent (14:46 09/04/2016 Geovanni Nobles) ([facility] 14:47 Sammi) (15:45 [facility]) MEDICATION ORDERS: Zofran ODT PO 4 mg (NOW) (14:55 09/04/2016 Geovanni Nobles) (15:02 [facility] [place] IV FLUIDS: ORDER SHEET NOTES: [Electronically signed by Rodrigo Herrera Dr. (16:48 09/04/2016)] [Electronically signed by Meli Madrigal (16:56 09/04/2016)] [Electronically locked/signed by Meli Madrigal (16:56 09/04/2016)]
--- NOTE | 2016-09-04 16:56 | ED MAR SUMMARY ---
..... Medication Administration Record [facility] [address] [place] [address] Patient: ASHIA BRAN Visit ID: [id number] 36y, F Weight: 90.7 kg Height/Length: 65 in BMI: 33.3 ALLERGIES: Excedrine Given 15:02 09/04/2016 Meli Madrigal, Medication Administered: ZOFRAN ODT [PO] (ONDANSETRON), Dose: 4 mg Oral Disintegrating Tablets PO. Medication Ordered: Zofran ODT PO 4 mg (NOW).
--- NOTE | 2016-09-04 16:56 | ED DISCHARGE INSTRUCTIONS ---
Patient: ASHIA BRAN General Instructions [facility] VisitID: [id number] [place] [address] 36y, F Registration Date/Time: 09/04/2016 Acute pelvic pain. Ultrasound was not performed to determine location because the patient had a previously documented intrauterine (Round ligament pain). Mild nausea. No vomiting. INSTRUCTIONS Your Current Medications: CONTINUE TAKING THE FOLLOWING MEDICATIONS: Magnesium Oral : 400 mg daily. vitals *. Prescription Medications: Zofran (orally disintegrating tablets) 4 mg: take 1 orally every 6 hours as needed for nausea and vomiting. Dispense ten (10). No refill. Substitution is permissible. Tramadol 50 mg: take 1 orally every 6 hours as needed for pain. Do not take more than 8 tablets in a 24 hour period. Dispense fifteen (15). Follow-up: Follow up with your doctor in about three days. Call for an appointment. Screening today revealed the patient's blood pressure to be in the normal range. ADDITIONAL INFORMATION Ondansetron Oral disintegrating tablet What is this medicine? ONDANSETRON (on YADIEL se randee) is used to treat nausea and vomiting caused by chemotherapy. It is also used to prevent or treat nausea and vomiting after surgery. How should I use this medicine? These tablets are made to dissolve in the mouth. Do not try to push the tablet through the foil backing. With dry hands, peel away the foil backing and gently remove the tablet. Place the tablet in the mouth and allow it to dissolve, then swallow. While you may take these tablets with water, it is not necessary to do so. Talk to your supervisor rice milling regarding the use of this medicine in children. Special care may be needed. What side effects may I notice from receiving this medicine? Side effects that you should report to your doctor or health patient care specialist as soon as possible: allergic reactions like skin rash, itching or hives, swelling of the face, lips, or tongue breathing problems dizziness fast or irregular heartbeat feeling faint or lightheaded, falls fever and chills swelling of the hands and feet tightness in the chest Side effects that usually do not require medical attention (report to your doctor or health patient care specialist if they continue or are bothersome): constipation or diarrhea headache What may interact with this medicine? Do not take this medicine with any of the following medications: -apomorphine -cisapride -dofetilide -dronedarone -pimozide -thioridazine -ziprasidone This medicine may also interact with the following medications: -carbamazepine -phenytoin -rifampicin -tramadol -other medicines that prolong the QT interval (cause an abnormal heart rhythm) What if I miss a dose? If you miss a dose, take it as soon as you can. If it is almost time for your next dose, take only that dose. Do not take double or extra doses. Where should I keep my medicine? Keep out of the reach of children. Store between 2 and 30 degrees C (36 and 86 degrees F). Throw away any unused medicine after the expiration date. What should I tell my health care provider before I take this medicine? They need to know if you have any of these conditions: heart disease history of irregular heartbeat liver disease low levels of magnesium or potassium in the blood an unusual or allergic reaction to ondansetron, granisetron, other medicines, foods, dyes, or preservatives or trying to get breast-feeding What should I watch for while using this medicine? Check with your doctor or health patient care specialist as soon as you can if you have any sign of an allergic reaction. You have been given the following additional information: Ondansetron Oral disintegrating tablet (Electronically signed by Rodrigo Herrera Dr. 09/04/2016 16:48)
--- NOTE | 2016-09-04 16:56 | ED MED RECONCILIATION SUMMARY ---
Patient: ASHIA BRAN Medication Reconciliation Report [facility] VisitID: [id number] [address] [place] [address] 36y, F Registration Date/Time: 09/04/2016 Weight: 90.7 kg Height/Length: 65 in. BMI: 33.3 ALLERGIES: Excedrine The patient's Home Medications are listed below: CONTINUE TAKING THE FOLLOWING MEDICATIONS: Magnesium Oral 400 mg, daily vitals The source(s) of the original Home Medication information: patient The following Medications were given to the patient in the Emergency Department: Zofran ODT [PO] PO 4 mg, administered: 09/04/2016 3:02:00 PM The following Medications were prescribed to the patient: Zofran (orally disintegrating tablets) 4 mg: take 1 orally every 6 hours as needed for nausea and vomiting. Dispense ten (10). No refill. Substitution is permissible. -- Rodrigo Herrera Dr. Tramadol 50 mg: take 1 orally every 6 hours as needed for pain. Do not take more than 8 tablets in a 24 hour period. Dispense fifteen (15). -- Rodrigo Herrera Dr.
--- NOTE | 2016-09-04 16:56 | ED MED RECONCILIATION SUMMARY ---
Patient: ASHIA BRAN Medication Reconciliation Report [facility] VisitID: [id number] [address] [place] [address] 36y, F Registration Date/Time: 09/04/2016 Weight: 90.7 kg Height/Length: 65 in. BMI: 33.3 ALLERGIES: Excedrine The patient's Home Medications are listed below: CONTINUE TAKING THE FOLLOWING MEDICATIONS: Magnesium Oral 400 mg, daily vitals The source(s) of the original Home Medication information: patient The following Medications were given to the patient in the Emergency Department: Zofran ODT [PO] PO 4 mg, administered: 09/04/2016 3:02:00 PM The following Medications were prescribed to the patient: Zofran (orally disintegrating tablets) 4 mg: take 1 orally every 6 hours as needed for nausea and vomiting. Dispense ten (10). No refill. Substitution is permissible. -- Rodrigo Herrera Dr. Tramadol 50 mg: take 1 orally every 6 hours as needed for pain. Do not take more than 8 tablets in a 24 hour period. Dispense fifteen (15). -- Rodrigo Herrera Dr.
--- NOTE | 2016-09-04 16:56 | ED MAR SUMMARY ---
..... Medication Administration Record [facility] [address] [place] [address] Patient: ASHIA BRAN Visit ID: [id number] 36y, F Weight: 90.7 kg Height/Length: 65 in BMI: 33.3 ALLERGIES: Excedrine Given 15:02 09/04/2016 Meli Madrigal, Medication Administered: ZOFRAN ODT [PO] (ONDANSETRON), Dose: 4 mg Oral Disintegrating Tablets PO. Medication Ordered: Zofran ODT PO 4 mg (NOW).
--- NOTE | 2016-09-04 16:56 | ED DISCHARGE INSTRUCTIONS ---
Patient: ASHIA BRAN General Instructions [facility] VisitID: [id number] [place] [address] 36y, F Registration Date/Time: 09/04/2016 Acute pelvic pain. Ultrasound was not performed to determine location because the patient had a previously documented intrauterine (Round ligament pain). Mild nausea. No vomiting. INSTRUCTIONS Your Current Medications: CONTINUE TAKING THE FOLLOWING MEDICATIONS: Magnesium Oral : 400 mg daily. vitals *. Prescription Medications: Zofran (orally disintegrating tablets) 4 mg: take 1 orally every 6 hours as needed for nausea and vomiting. Dispense ten (10). No refill. Substitution is permissible. Tramadol 50 mg: take 1 orally every 6 hours as needed for pain. Do not take more than 8 tablets in a 24 hour period. Dispense fifteen (15). Follow-up: Follow up with your doctor in about three days. Call for an appointment. Screening today revealed the patient's blood pressure to be in the normal range. ADDITIONAL INFORMATION Ondansetron Oral disintegrating tablet What is this medicine? ONDANSETRON (on YADIEL se randee) is used to treat nausea and vomiting caused by chemotherapy. It is also used to prevent or treat nausea and vomiting after surgery. How should I use this medicine? These tablets are made to dissolve in the mouth. Do not try to push the tablet through the foil backing. With dry hands, peel away the foil backing and gently remove the tablet. Place the tablet in the mouth and allow it to dissolve, then swallow. While you may take these tablets with water, it is not necessary to do so. Talk to your fabric inspector regarding the use of this medicine in children. Special care may be needed. What side effects may I notice from receiving this medicine? Side effects that you should report to your doctor or health healthcare technician as soon as possible: allergic reactions like skin rash, itching or hives, swelling of the face, lips, or tongue breathing problems dizziness fast or irregular heartbeat feeling faint or lightheaded, falls fever and chills swelling of the hands and feet tightness in the chest Side effects that usually do not require medical attention (report to your doctor or health healthcare technician if they continue or are bothersome): constipation or diarrhea headache What may interact with this medicine? Do not take this medicine with any of the following medications: -apomorphine -cisapride -dofetilide -dronedarone -pimozide -thioridazine -ziprasidone This medicine may also interact with the following medications: -carbamazepine -phenytoin -rifampicin -tramadol -other medicines that prolong the QT interval (cause an abnormal heart rhythm) What if I miss a dose? If you miss a dose, take it as soon as you can. If it is almost time for your next dose, take only that dose. Do not take double or extra doses. Where should I keep my medicine? Keep out of the reach of children. Store between 2 and 30 degrees C (36 and 86 degrees F). Throw away any unused medicine after the expiration date. What should I tell my health care provider before I take this medicine? They need to know if you have any of these conditions: heart disease history of irregular heartbeat liver disease low levels of magnesium or potassium in the blood an unusual or allergic reaction to ondansetron, granisetron, other medicines, foods, dyes, or preservatives or trying to get breast-feeding What should I watch for while using this medicine? Check with your doctor or health healthcare technician as soon as you can if you have any sign of an allergic reaction. You have been given the following additional information: Ondansetron Oral disintegrating tablet (Electronically signed by Rodrigo Herrera Dr. 09/04/2016 16:48)
== END 2016-09-04 16:52 | disposition home or self-care (01) ==
LOC: ED SRH 14:28
DX: O26.899 Other specified pregnancy related conditions, unspecified trimester (principal); R10.2 Pelvic and perineal pain; R11.0 Nausea; Z3A.00 Weeks of gestation of pregnancy not specified; K21.9 Gastro-esophageal reflux disease without esophagitis; Z79.899 Other long term (current) drug therapy; Z88.8 Allergy status to other drugs, medicaments and biological substances
CPT/HCPCS: 90004